=== PATIENT | male | born 1990 | race Caucasian/White ===

== ENCOUNTER 2020-09-12 20:25 | Emergency (ER) | payer SELFPAY ==
[~2020-09-12] VITALS: Ht 170.2 cm; Wt 58.0 kg
[2020-09-12 20:40] VITALS: BP 150/88
== END 2020-09-12 21:44 | disposition home or self-care (01) ==
LOC: ER 20:25
DX: Z53.21 Procedure and treatment not carried out due to patient leaving prior to being seen by health care provider (principal)